=== PATIENT | female | born 1995 | race Caucasian/White ===

== ENCOUNTER → 2020-10-21 | Outpatient (CLI) | payer BC ==
--- NOTE | 2020-10-23 07:05 | REP ---
INDICATION: ANATOMY COMPARISON: None. TECHNIQUE: Transabdominal obstetrical ultrasound with color Doppler evaluation. FINDINGS: Examination demonstrates a single live intrauterine in transverse (head to maternal right) presentation. motion is identified by technologist. Placenta is noted anterior and grade 0 without evidence for placenta previa or abruption. Amniotic fluid volume is normal. Cervix measures 3.7 cm in length and appears closed. Synechiae/amniotic sheet is suspected extending from the anterior to the posterior uterine wall without obvious intervening anatomical structures. Gestational age by LMP twenty-four weeks 0 days with MOANE 02/10/2021. Gestational age by current measurements 24 weeks 6 days with MONAE 02/04/2021. FHR equals 149 beats per minute. Estimated weight 757 grams (84thpercentile). Anatomical assessment demonstrates normal structures including cranium, choroid plexus, cavum, cerebellum/posterior fossa, facial features, lungs, four-chamber heart, diaphragm, stomach, cord insertion/three-vessel cord, kidneys/bladder, and extremities. IMPRESSION: 1. Single live intrauterine in transverse lie demonstrating appropriate estimated weight. 2. Possible synechia/amniotic sheet. 3. Limited evaluation of the cardiac ventricular outflow tracts and spine. 4. Consider follow-up examination <Electronically signed by Parminder Cordero > 10/23/20 0739
== END ==
LOC: M RAD 16:16
PROVIDERS: ATTEND Obstetrics & Gynecology
DX: Z34.82 Encounter for supervision of other normal pregnancy, second trimester (principal)

== ENCOUNTER → 2020-11-23 | Outpatient (CLI) | payer BC, MEDICAID ==
--- NOTE | 2020-11-24 07:17 | REP ---
INDICATION: PREG 28 WKS F/U ANATOMY COMPARISON: 10/21/2020 TECHNIQUE: Transabdominal obstetrical ultrasound with color Doppler evaluation. FINDINGS: Examination demonstrates a single live intrauterine in cephalic presentation. motion is identified by technologist. Placenta is noted anterior and grade 1 without evidence for placenta previa or abruption. A single thin synechia is suggested along the left lower uterus without approximating parts. Amniotic fluid volume is normal. Cervix measures 3.5 cm in length and appears closed. Selected gestational age: 28 weeks 5 days with MONAE 02/10/2021. Gestational age by current measurements 30 weeks 4 days with MONAE 01/28/2021. FHR equals 149 beats per minute. GEMMA: 15.5 cm Umbilical artery SD ratio: 2.94 (2.05-4.26) Estimated weight 1631 grams (76thpercentile). IMPRESSION: Single live intrauterine in cephalic presentation demonstrating appropriate interval growth. In conjunction with prior examination anatomical assessment is complete and normal <Electronically signed by Parminder Cordero > 11/24/20 [id number]
== END ==
LOC: M RAD 16:22
PROVIDERS: ATTEND Obstetrics & Gynecology
DX: Z34.82 Encounter for supervision of other normal pregnancy, second trimester (principal)

== ENCOUNTER → 2020-11-25 | Outpatient (REF) | payer BC, MEDICAID ==
[2020-11-25 16:12] LABS: HEMATOCRIT 36.9 % (36.0-47.0); HEMOGLOBIN 12.4 g/dl (12.0-15.5); MEAN CORPUSCULAR HEMOGLOBIN 31.6 pg (27.0-33.0); MEAN CORPUSCULAR HGB CONC 33.6 g/dl (32.0-36.5); MEAN CORPUSCULAR VOLUME 93.9 fl (80.0-96.0); PLATELET COUNT, AUTOMATED 262 10^3/uL (150-450); RED BLOOD COUNT 3.93 10^6/uL (4.00-5.40); WHITE BLOOD COUNT 8.7 10^3/uL (4.0-10.0)
== END ==
LOC: M PLALAB 13:04
PROVIDERS: ATTEND Obstetrics & Gynecology
DX: Z34.92 Encounter for supervision of normal pregnancy, unspecified, second trimester (principal)
CPT/HCPCS: 36415; 82950; 85027; 86850; 86900; 86901; J2790

== ENCOUNTER 2020-12-13 17:55 | Outpatient (CLI) | payer BC, MEDICAID ==
[~2020-12-13] VITALS: Ht 167.6 cm; Wt 88.6 kg
[2020-12-13] MEDS ORDERED: PRENTAB9 PO (18:16)
[2020-12-13] MEDS ORDERED: VALT500T PO (18:16)
[2020-12-13 18:17] VITALS: BP 106/55
--- NOTE | 2020-12-13 20:05 | IPNPDOC ---
Text Note Date of Service The patient was seen on 12/13/20. NOTE Triage Visit Anaya is a 25yo with SIUP at 31w4d presenting for a couple concerns. She called and stated that she was having what she thought were hiccups but they were "more frequent than what she previously experienced" so concerned her. She also googled and states her search made her concerned there could be distress. She has excellent movement and no ctx/lof/vb. She does have occasional "sharp, random" pains in her abdomen, usually at the upper edge of her RUQ under her rib cage. The pains occur quick and dissipate immediately. 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 Patient endorses having a lot of concern/anxiety in her related to this diagnosis. Vitals wnl, afebrile Gen: WDWN, resting comfortably in bed Abdomen: soft, gravid, NTTP Extremities: no edema of BLE Cat I FHRT with +accels, -decels, mod rubén [place]: no ctx TAUS: SIUP with cephalic presentation, +FCA, +FM with swallowing and breathing motions noted, anterior placenta, MVP 4.75cm Assessment: Anaya is a 25yo with SIUP at 31w4d with reassuring exam. Normal assessment with MVP 4.75cm and Cat I FHRT. Vitals wnl. Plan: -provided reassurance -safe for discharge home -follow up this week for routine OB visit as scheduled -follow up for routine repeat ultrasound as scheduled this week MD YEMI Shukla Fishbone I+O Charan BRAGG I+O Vital Signs Date Time Temp Pulse Resp B/P (MAP) Pulse Ox O2 Delivery O2 Flow Rate FiO2 12/13/20 18:17 98.6 80 18 106/55 (72) Antonieta Jerry MD Dec 13, 2020 19:48
== END 2020-12-13 18:59 | disposition home or self-care (01) ==
LOC: M LDO 17:55
PROVIDERS: ATTEND Obstetrics & Gynecology
DX: O26.893 Other specified pregnancy related conditions, third trimester (principal); Z3A.31 31 weeks gestation of pregnancy; R10.11 Right upper quadrant pain
CPT/HCPCS: 59025; 76815; G0378; G0463

== ENCOUNTER → 2020-12-16 | Outpatient (CLI) | payer BC, MEDICAID ==
[~2020-12-16] MED LIST: ACET-683 PO; CALC600T60 PO; CHOL300T PO; IBUP80TA PO; PRENTAB9 PO; VALT500T PO
== END ==
LOC: M WHC 13:05
PROVIDERS: ATTEND Specialist
DX: Z34.03 Encounter for supervision of normal first pregnancy, third trimester (principal); Z3A.32 32 weeks gestation of pregnancy

== ENCOUNTER → 2021-01-10 | Outpatient (CLI) | payer BC, MEDICAID | LOC: M WHC 08:38 | PROVIDERS: ATTEND Advanced Practice Midwife | DX: O41.93X1 Disorder of amniotic fluid and membranes, unspecified, third trimester, fetus 1 (principal); Z3A.35 35 weeks gestation of pregnancy ==

== ENCOUNTER → 2021-01-12 | Outpatient (REF) | payer BC, MEDICAID ==
[~2021-01-12] MED LIST changes: -ACET-683 PO; -CALC600T60 PO; -CHOL300T PO; -IBUP80TA PO
== END ==
LOC: M SFHCWAGY 16:35
PROVIDERS: ATTEND Advanced Practice Midwife
DX: Z34.83 Encounter for supervision of other normal pregnancy, third trimester (principal); Z3A.35 35 weeks gestation of pregnancy

== ENCOUNTER 2021-02-03 04:51 | Outpatient (CLI) | payer BC, MEDICAID ==
[~2021-02-03] VITALS: Ht 167.6 cm; Wt 95.1 kg
[2021-02-03] MEDS ORDERED: CALC600T60 PO (05:59)
[2021-02-03 09:13] VITALS: BP 114/56
--- NOTE | 2021-02-03 09:37 | IPNPDOC ---
Text Note Date of Service The patient was seen on 02/03/21. NOTE Outpatient Reports UC through the night, now resolving. Denies LOF, bleeding Cat I tracing, pt is reassured SVE /, slight posterior. Soft Discharged home. Routine precautions. Keep appt next week Zahra Young CNM Feb 03, 2021 09:37
[2021-02-04] MEDS ORDERED: CHOL300T PO (13:37)
== END 2021-02-03 09:55 | disposition home or self-care (01) ==
LOC: M LDO 04:51
PROVIDERS: ATTEND Obstetrics & Gynecology
DX: O60.03 Preterm labor without delivery, third trimester (principal); Z3A.38 38 weeks gestation of pregnancy; Z88.1 Allergy status to other antibiotic agents
CPT/HCPCS: 59025; G0378; G0463

== ENCOUNTER 2021-02-04 09:13 | Inpatient (IN) | payer BC, MEDICAID ==
[2021-02-04] VITALS (29 sets, daily range): BP systolic 116–161; BP diastolic 64–98
[~2021-02-04] VITALS: Ht 167.6 cm; Wt 95.2 kg
[~2021-02-04 09:13] MED LIST changes: +CALC600T60 PO
--- NOTE | 2021-02-04 10:37 | HPEPDOC ---
Obstetrical History & Physical General Date of Admission Feb 04, 2021 at 10:02 History of Present Illness 25yo at 39w1d EDC 02/10/21, presents with contractions q4-5mins for several h ours. Reports active movement. No vaginal bleeding, LOF or decreased movement. 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 History: Spontaneous , Theraputic , Herpes simplex virus(HSV) Past Medical History Surgical History: Appendectomy, Dilatation and Curettage Family History Significant Family History: Cancer Social History Marital Status: Single Psychosocial History: Anxiety * Smoker: non-smoker Alcohol: Denies Drugs: denies Allergies Coded Allergies: amoxicillin (Verified Allergy, Mild, RASH, 12/13/20) Medications Scheduled Calcium Carbonate (Calcium) 600 Mg Tablet, 1 TAB PO DAILY No.137/Iron/Folic Acd ( Vitamin Tablet) 1 Each Tablet, 1 TAB PO DAILY Valacyclovir HCl (Valtrex) 500 Mg Tablet, 500 MG PO DAILY Physical Examination Physical Examination GENERAL: Alert and oriented times three. BREAST: . ABDOMEN: Gravid and non-tender to touch. FETUS: Is vertex (VTX) by sterile vaginal examination (SVE), fetus is vertex (VTX) by Nico. HEART RATE: Regular rate and rhythm. LUNGS: Clear to auscultation (CTA). Pertinent Laboratoy Data Blood Type: A- RBC Antibody Screen: Negative HIV: Negative Hepatitis B: Negative Rapid Plasma Reagin: Nonreactive Rubella: Immune Group B Streptococcus: Negative Glucose Tolerance Test: 105 Anatomy Ultrasound Placenta Location: Anterior (small amniotic band in the lower uterine segment) Vaginal Examination Dilation: 3 cm Effacement: 70% Station: -2 Cervical Consistency: Medium Cervical Position: Middle Presentation: Cephalic presentation Assessment Variability: Moderate Tocometer Frequency: regular Assessment/Plan Assessment 25-year-old at 39 weeks 1 day in active labor Reassuring status Plan Admit and orient. Director Statistical Programming and consent. Group B Streptococcus (GBS) negative. Labs and intravenous (IV) per unit protocol. Counseled on Pitocin and induction of labor (IOL). Anticipate normal spontaneous delivery (). C-S as appropriate. HUMZA RHODES MD. Feb 04, 2021 10:37
[2021-02-04 10:42] LABS: HEMATOCRIT 38.4 % (36.0-47.0); HEMOGLOBIN 13.1 g/dl (12.0-15.5); MEAN CORPUSCULAR HEMOGLOBIN 31.3 pg (27.0-33.0); MEAN CORPUSCULAR HGB CONC 34.1 g/dl (32.0-36.5); MEAN CORPUSCULAR VOLUME 91.6 fl (80.0-96.0); PLATELET COUNT, AUTOMATED 224 10^3/uL (150-450); RED BLOOD COUNT 4.19 10^6/uL (4.00-5.40); WHITE BLOOD COUNT 11.1 10^3/uL (4.0-10.0)
[2021-02-04 11:13] LABS: ALT/SGPT 22 U/L (12-78); BILIRUBIN,TOTAL 0.2 MG/DL (0.2-1.0); CREATININE FOR GFR 0.51 MG/DL (0.55-1.30); GLOMERULAR FILTRATION RATE > 60.0 (>60); LDH LACTATE DEHYDROGENASE 157 U/L (84-246); URIC ACID 3.6 MG/DL (2.6-6.0)
[2021-02-04] MEDS ORDERED: CHOL300T PO (13:37)
[2021-02-04] MEDS ORDERED: OXYTOCIN 30 UNITS IN 0.9% NaCl 500ML IV BAG (J2590) As Ordered ONE (14:30)
[2021-02-04] MEDS ORDERED: LR 1,000 ML IV SCH (14:35)
[2021-02-04] MEDS ORDERED: OXYTOCIN DRIP 30 UNITS in IV 1 EA IV SCH (14:35)
[2021-02-04] MEDS: LR 1,000 ML IV SCH ×2 (14:41→20:27)
[2021-02-04] MEDS ORDERED: BUTORPHANOL 2 MG/ML INJ (J0595) IV ONE ×2 (17:10→20:55)
[2021-02-04] MEDS ORDERED: PROMETHAZINE INJ 25 MG/ML VIAL (J2550) IV PRN (17:10)
[2021-02-04] MEDS ORDERED: FENTANYL 2MCG/ML ROPIVACAINE 0.2% IN 0.9% NACL 100ML IVBAG As Ordered ONE (20:58)
[2021-02-04] MEDS ORDERED: ePHEDrine SULFATE 25 MG/5 ML(5MG/ML) SYRINGE IV PRN (22:05)
[2021-02-04] MEDS ORDERED: diphenhydrAMINE 50MG/ML VIAL (J1200) IV PRN (22:05)
[2021-02-04] MEDS ORDERED: LACTATED RINGER'S 1000 ML IV PRN (22:05)
[2021-02-04] MEDS ORDERED: REFRIGERATOR IV KEYS XX PRN (22:05)
[2021-02-04] MEDS ORDERED: FENTANYL/ROPIVACAINE/NACL BAG 100 ML EPIDURAL SCH (22:05)
[2021-02-04] MEDS ORDERED: NALOXONE INJ 0.4MG/1ML VIAL (J2310 PER 1MG) IV PRN (22:05)
[2021-02-04] MEDS ORDERED: ONDANSETRON 4MG/2ML VIAL IV PRN (22:05)
[2021-02-04] MEDS ORDERED: EPIDURAL/PCA KEYS XX PRN (22:05)
[2021-02-04] MEDS ORDERED: EPIDURAL COMMENT XX SCH (22:05)
[2021-02-05] VITALS (8 sets, daily range): BP systolic 124–156; BP diastolic 61–99
--- NOTE | 2021-02-05 00:09 | DNPDOC ---
[facility] Delivery Note Delivery Note DATE OF DELIVERY: 02/05/2021 TIME OF : 2338 GENDER: Female APGARS: 9 and 9. WEIGHT: 3400 g LACERATIONS: none ANESTHESIA: epidural ESTIMATED BLOOD LOSS: 200 ml COUNTS: 5 laparotomy sponges accounted for prior to after delivery. DELIVERY NOTE: On this patient is a 25-year-old 2 now para 2 status finds spontaneous vaginal delivery of a liveborn female infant Apgars 9 and 9 weight was 3400 g time of was 2238 date was 02/05/2021. Head was delivered occiput anterior (OA), followed by delivery of the shoulders and corpus. Infant was handed to mom with a good cry. Cord was clamped times two and was cut by support person under my direction. Placenta was then drained and delivered grossly intact. A premixed bag of 500 mL of normal saline with 30 units of Pitocin was then bolused along with uterine massage until the uterus was firm. On inspection, cervix, vagina, perineum was grossly intact and hemostatic. Mom and baby in recovery on stable condition. Couples decided to name the daughter HUMZA Mota MD. Feb 05, 2021 00:09
[2021-02-05] MEDS ORDERED: RHOGAM 300 MCG (1500 IU) INJ (J2790) IM SCH (00:10)
[2021-02-05] MEDS ORDERED: METHYLERGONOVINE MALEATE 0.2 MG TAB PO PRN (00:10)
[2021-02-05] MEDS ORDERED: DIBUCAINE 1% OINTMENT 30GM TOP PRN (00:10)
[2021-02-05] MEDS ORDERED: DOCUSATE SODIUM 100MG CAPSULE PO PRN (00:10)
[2021-02-05] MEDS ORDERED: ANUSOL HC CREAM 30GM TOP PRN (00:10)
[2021-02-05] MEDS ORDERED: ACETAMINOPHEN 500 MG TAB PO PRN (00:10)
[2021-02-05] MEDS ORDERED: OXYTOCIN DRIP 30 UNITS in IV 1 EA IV SCH (00:10)
[2021-02-05] MEDS ORDERED: IBUPROFEN 600MG TAB PO PRN (00:10)
[2021-02-05] MEDS ORDERED: MEASLES,MUMPS,RUBELLA VACCINE INJ (MMR-II) (90707) SC SCH (00:10)
[2021-02-05] MEDS ORDERED: ACETAMINOPHEN TAB 650MG DOSE (2X325MG) PO PRN (00:10)
[2021-02-05] MEDS ORDERED: MOM 30ML SUSPENSION UDC PO PRN (00:10)
[2021-02-05] MEDS: PRENATAL VITAMINS CHEWABLE TABLET PO SCH (08:59)
[2021-02-05] MEDS: IBUPROFEN 800 MG TAB PO PRN (09:39)
--- NOTE | 2021-02-05 12:19 | IPNPDOC ---
Progress Note Date of Service: Feb 05, 2021 Day#: 1 Progress Note SUBJECT: Doing well without complaints. Ambulating, voiding and pain is well-c ontrolled. Reports minimal lochia. OBJECTIVE: VITAL SIGNS: Within normal limits, afebrile. Alert and oriented times three. Abdomen: Fundus firm at U-2. Soft, NTTP. Ext: neg calf tenderness. ASSESSMENT: day #1 status post . Recovering in stable condition. PLAN: 1. Continue routine care 2. Discharge plans for tomorrow VS, I&O, 24H, Fishbone Vital Signs/I&O Vital Signs Date Time Temp Pulse Resp B/P (MAP) Pulse Ox O2 Delivery O2 Flow Rate FiO2 02/05/21 06:00 99.5 77 20 127/61 (83) 97 Room Air I&O- Last 24 Hours up to 6 AM 02/05/21 06:00 Intake Total 3647 ml Output Total 1000 ml Balance 2647 ml Laboratory Data 24H LABS Laboratory Tests 2 02/04/21 15:28: Serology Scanned Report Hepatitis B Testing HUMZA RHODES MD. Feb 05, 2021 12:19
[2021-02-06] MEDS: IBUPROFEN 800 MG TAB PO PRN (03:24)
[2021-02-06 05:54] VITALS: BP 111/62
[2021-02-06] MEDS: PRENATAL VITAMINS CHEWABLE TABLET PO SCH (09:18)
[2021-02-06] MEDS ORDERED: IBUP80TA PO (09:29)
[2021-02-06] MEDS ORDERED: ACET-683 PO (09:29)
== END 2021-02-06 13:43 | disposition home or self-care (01) | DRG 560 ==
LOC: M LDO 09:13 → M LDI 10:02 → M OBS 02-05 01:20
PROVIDERS: ADMIT Obstetrics & Gynecology; ATTEND Obstetrics & Gynecology
PROC: 10E0XZZ Delivery of Products of Conception, External Approach (ICD-10-PCS; principal; 2021-02-05)
DX: O80 Encounter for full-term uncomplicated delivery (principal); Z37.0 Single live birth; Z3A.39 39 weeks gestation of pregnancy

== ENCOUNTER → 2021-04-04 | Outpatient (REF) | payer BC, MEDICAID ==
[~2021-04-04] MED LIST changes: +ACET-683 PO; +CHOL300T PO; +IBUP80TA PO
== END ==
LOC: M SFHCWAGY 17:16
PROVIDERS: ATTEND Obstetrics & Gynecology
DX: R30.0 Dysuria (principal)

== ENCOUNTER → 2021-05-19 | Outpatient (REF) | payer BC, MEDICAID | LOC: M SFHCWAGY 10:45 | PROVIDERS: ATTEND Obstetrics & Gynecology | DX: Z12.4 Encounter for screening for malignant neoplasm of cervix (principal) ==

== ENCOUNTER 2021-07-27 05:06 | Emergency (ER) | payer BC, MEDICAID ==
[~2021-07-27] VITALS: Ht 167.6 cm; Wt 89.2 kg
[2021-07-27] MEDS ORDERED: IBUPROFEN 800 MG TAB PO ONE (06:20)
[2021-07-27 06:33] LABS: RSV AMPLIFICATION NEGATIVE (NEGATIVE)
[2021-07-27 06:45] VITALS: BP 128/62
== END 2021-07-27 07:25 | disposition home or self-care (01) ==
LOC: M ED 05:06
DX: U07.1 COVID-19 (principal); J45.909 Unspecified asthma, uncomplicated; Z88.1 Allergy status to other antibiotic agents; Z79.899 Other long term (current) drug therapy

== ENCOUNTER 2021-09-23 06:31 | Emergency (ER) | payer MEDICAID ==
[~2021-09-23] VITALS: Ht 167.6 cm; Wt 88.8 kg
[2021-09-23 08:12] LABS: BASO # 0.1 10^3/uL (0.0-0.2); EOS # 0.2 10^3/uL (0.0-0.5); EOS % 3.4 % (0.0-3.0); HEMOGLOBIN 13.6 g/dl (12.0-15.5); LYMPH # 1.7 10^3/uL (1.5-5.0); LYMPH % 33.1 % (24.0-44.0); MEAN CORPUSCULAR HEMOGLOBIN 32.1 pg (27.0-33.0); MEAN CORPUSCULAR VOLUME 94.3 fl (80.0-96.0); MONO # 0.5 10^3/uL (0.0-0.8); MONO % 9.6 % (2.0-8.0); NEUTROPHILS # 2.8 10^3/uL (1.5-8.5); NEUTROPHILS % 52.7 % (36.0-66.0); PLATELET COUNT, AUTOMATED 214 10^3/uL (150-450); RED BLOOD COUNT 4.24 10^6/uL (4.00-5.40); WHITE BLOOD COUNT 5.2 10^3/uL (4.0-10.0)
[2021-09-23 08:52] LABS: HCG, SERUM QUALITATIVE NEGATIVE (NEGATIVE)
[2021-09-23 09:14] LABS: ALBUMIN 3.7 GM/DL (3.2-5.2); ALT/SGPT 18 U/L (12-78); BILIRUBIN,DIRECT 0.2 MG/DL (0.0-0.2); BILIRUBIN,TOTAL 0.3 MG/DL (0.2-1.0); BLOOD UREA NITROGEN 9 MG/DL (7-18); CALCIUM LEVEL 8.8 MG/DL (8.5-10.1); CARBON DIOXIDE LEVEL 28 MEQ/L (21-32); CHLORIDE LEVEL 109 MEQ/L (98-107); CREATININE FOR GFR 0.77 MG/DL (0.55-1.30); GLOMERULAR FILTRATION RATE > 60.0 (>60); GLUCOSE, FASTING 93 MG/DL (70-100); LIPASE 99 U/L (73-393); POTASSIUM SERUM 4.1 MEQ/L (3.5-5.1); SODIUM LEVEL 142 MEQ/L (136-145); TOTAL PROTEIN 6.2 GM/DL (6.4-8.2)
[2021-09-23 09:50] VITALS: BP 114/57
== END 2021-09-23 09:56 | disposition home or self-care (01) ==
LOC: M ED 06:31
DX: R07.9 Chest pain, unspecified (principal); R10.11 Right upper quadrant pain; K21.9 Gastro-esophageal reflux disease without esophagitis; J45.909 Unspecified asthma, uncomplicated; F32.A Depression, unspecified; F41.8 Other specified anxiety disorders; R00.2 Palpitations; Z88.0 Allergy status to penicillin

== ENCOUNTER → 2022-09-06 | Outpatient (REF) | payer OTHER, MEDICAID, BC ==
[2022-09-06 17:30] LABS: BASO # 0.1 10^3/uL (0.0-0.2); EOS # 0.1 10^3/uL (0.0-0.5); EOS % 1.8 % (0.0-3.0); HEMATOCRIT 43.2 % (36.0-47.0); HEMOGLOBIN 14.1 g/dl (12.0-15.5); LYMPH # 1.9 10^3/uL (1.5-5.0); LYMPH % 28.2 % (24.0-44.0); MEAN CORPUSCULAR HEMOGLOBIN 30.9 pg (27.0-33.0); MEAN CORPUSCULAR HGB CONC 32.6 g/dl (32.0-36.5); MEAN CORPUSCULAR VOLUME 94.7 fl (80.0-96.0); MONO # 0.6 10^3/uL (0.0-0.8); MONO % 8.2 % (2.0-8.0); NEUTROPHILS # 4.1 10^3/uL (1.5-8.5); NEUTROPHILS % 60.5 % (36.0-66.0); PLATELET COUNT, AUTOMATED 423 10^3/uL (150-450); RED BLOOD COUNT 4.56 10^6/uL (4.00-5.40); WHITE BLOOD COUNT 6.8 10^3/uL (4.0-10.0)
[2022-09-06 17:56] LABS: PERCENT SATURATION 22.7 % (13.2-45.0)
== END ==
LOC: M LAB REF 16:27
PROVIDERS: ATTEND Nurse Practitioner Family
DX: D64.9 Anemia, unspecified (principal)